=== PATIENT | male | born 1990 | race African-American/Black ===

== ENCOUNTER 2016-09-29 20:03 | Emergency (ER) | payer OTHER ==
--- NOTE | ~2016-09-29 | CR169 ---
[facility] A Service of [facility] & [facility] RADIOLOGY TEXT RESULTS PATIENT: JESUS SCOTT LOCATION: CFTX : 89 UNIT #: [id number] AGE: [address]: MICHAEL DELGADILLO APRN SEX: M ORDER DR: [id number] [facility] [address] [place], [place] [address] [id number] E MR#: [id number] Acc #: [id number] NAME: JESUS SCOTT : 1990 SEX: M STUDY DATE/TIME: 09/29/2016 17:50 UNIT: [facility] ROOM: STUDY DESCRIPTION: CR Knee 2 Views Lt Attending Physician: Michael Delgadillo Aprn Ordering Physician: [facility] MEDICAL IMAGING REPORT This report is preliminary unless electronic signature is present EXAM Two views left knee HISTORY Left knee pain, feels like bank wrapped around left knee since Friday, two days ago. No known injury. N FINDINGS AP and lateral projection of the knee shows smooth articular anatomy without indication of fracture or dislocation at the major weight-bearing surface of the knee. There is no indication of radiopaque foreign body about the knee surface or joint effusion. IMPRESSION Normal knee. Dictated by... Antonette Yu M.D. THIS IS AN ELECTRONICALLY VERIFIED REPORT Antonette Yu M.D. at 09/30/2016 10:05 AM Inder TD: 09/30/2016 08:58 JOB #: [id number] MEDICAL IMAGING REPORT Page 1 of 1 COPY
== END 2016-09-29 20:12 | disposition home or self-care (01) ==
LOC: CED 20:03
DX: S83.92XA Sprain of unspecified site of left knee, initial encounter (principal); X58.XXXA Exposure to other specified factors, initial encounter; Y93.67 Activity, basketball; Y92.830 Public park as the place of occurrence of the external cause
CPT/HCPCS: 29515; 73560; 99283